=== PATIENT | female | born 1980 | race Caucasian/White ===

== ENCOUNTER 2025-01-25 04:11 | Emergency (ER) | payer SELFPAY ==
[2025-01-25] VITALS (10 sets, daily range): BP systolic 133–167; BP diastolic 61–83; PULSE 64–83; RESP 14–20; TEMP 36.8; O2SAT 97–100; BMI 35.4
--- NOTE | 2025-01-25 04:37 | ED.ABDPAIN ---
HPI - Abdominal Pain General Chief Complaint: Abdominal Pain Stated Complaint: N, V, had gall bladder removed 01/22 Time Seen by Provider: 01/25/25 04:33 Source: patient Mode of arrival: Wheelchair History of Present Illness HPI narrative: 44-year-old female with history of weight reduction gastric bypass surgery in [facility] October 2023, subsequent pain for which she was seen by bariatric surgeon Dr Slater in [facility], [facility], had consultation with [facility] general surgeon Dr. Baltazar, status post gallbladder removal 01/12/25 with incidental intraoperative internal hernia that was also repaired, follow up EGD in the next day 01/17/25 showed ulceration in gastric bypass area, continued on her omeprazole antacid with the addition of Carafate restart new medication day 2. Having increasing abdominal pain. No fevers or chills. No painful or frequent urination. Denies cough chest pain shortness of breath. Related Data Previous Rx's ?Medication ?Instructions ?Recorded hydrocodone 5 mg-acetaminophen 325 1 tab PO Q6H PRN pain #10 tabs 01/25/25 mg tablet Allergies Allergy/AdvReac Type Severity Reaction Status Date / Time NSAIDS (Non-Steroidal AdvReac Abdominal Verified 01/25/25 04:19 Anti-Inflamma Pain Patient History Smoking Status: Current every day smoker Exam Narrative Exam Narrative: GENERAL: Well-developed patient, in mild distress. HEAD: Atraumatic. Normocephalic. EYES: Pupils equal round and reactive. Extraocular motions intact. No scleral icterus. No injection or drainage. ENT: Nose without bleeding, purulent drainage. Throat without erythema, tonsillar hypertrophy or exudate. Airway patent. NECK: Trachea midline. Non tender CARDIOVASCULAR: Regular rate and rhythm without murmurs, gallops, or rubs. RESPIRATORY: Clear to auscultation. Breath sounds equal bilaterally. No wheezes, rales, or rhonchi. GASTROINTESTINAL: Obese, pannus with well-healed scars, some tenderness periumbilical without obvious ventral hernia, bowel tones unremarkable without rushes or tinkles. EXTREMITIES: No edema or joint tenderness. BACK: Nontender without deformity or crepitance. No flank tenderness. NEURO: AOx3. Motor functions grossly nonfocal. SKIN: No rash or erythema of visible areas Initial Vital Signs Initial Vital Signs: Vital Signs Pulse Rate 70 01/25/25 04:17 Blood Pressure 143/75 H 01/25/25 04:17 Pulse Oximetry 97 01/25/25 04:17 Oxygen Delivery Method Room Air 01/25/25 04:17 Course Orders Ordered: ED Orders 01/25/25 04:32 HCG Quantitative /Beta subunit Stat 01/25/25 04:33 Complete Blood Count AUTO DIFF Stat Comprehensive Metabolic Panel Stat Lipase Stat 01/25/25 04:53 CT abdomen pelvis w con Stat 01/25/25 04:54 Ictotest Urine Stat Urine Culture Stat Urine Microscopic Stat Discontinued Medications Hydrocodone Bitart/Acetaminophen (Hydrocodone/Acet 5/325 Prepack) 1 bottle MISC DIRECTED ONE Stop: 01/25/25 06:32 Last Admin: 01/25/25 06:38 Dose: 1 bottle Hydrocodone Bitart/Acetaminophen (Hydrocodone/Acet 5/325 Tablet) 1 tab PO NOW ONE Stop: 01/25/25 06:32 Last Admin: 01/25/25 06:38 Dose: 1 tab Hydromorphone HCl (Hydromorphone Hcl 0.5 Mg/0.5 Ml Syringe) 0.5 mg IV NOW ONE Stop: 01/25/25 04:47 Last Admin: 01/25/25 04:56 Dose: 0.5 mg Sodium Chloride (Normal Saline 0.9%) 1,000 mls @ 1,000 mls/hr IV BOLUS ONE Stop: 01/25/25 05:52 Last Infusion: 01/25/25 06:22 Dose: Infused Ondansetron HCl (Ondansetron 4 Mg/2 Ml Inj) 4 mg IV NOW ONE Stop: 01/25/25 04:47 Last Admin: 01/25/25 04:55 Dose: 4 mg Pantoprazole Sodium (Pantoprazole 40 Mg Vial) 40 mg IV NOW ONE Stop: 01/25/25 04:47 Last Admin: 01/25/25 04:55 Dose: 40 mg Vital Signs Vital signs: Vital Signs - 8 hr 01/25/25 04:17 01/25/25 04:17 01/25/25 04:18 Temperature 98.2 F Pulse Rate 70 83 Respiratory Rate 20 Blood Pressure 143/75 H 143/75 H Pulse Oximetry 97 97 Oxygen Delivery Method Room Air Room Air 01/25/25 04:30 01/25/25 04:30 01/25/25 05:00 Temperature Pulse Rate 64 70 Respiratory Rate Blood Pressure 135/74 Pulse Oximetry 100 100 Oxygen Delivery Method Room Air Room Air 01/25/25 05:01 01/25/25 05:01 01/25/25 05:21 Temperature Pulse Rate 74 Respiratory Rate 15 Blood Pressure 138/72 167/73 H Pulse Oximetry 99 Oxygen Delivery Method Room Air 01/25/25 05:21 01/25/25 05:30 01/25/25 05:30 Temperature Pulse Rate 68 71 Respiratory Rate 16 14 Blood Pressure 143/69 H Pulse Oximetry 100 100 Oxygen Delivery Method Room Air Room Air 01/25/25 06:00 01/25/25 06:00 Temperature Pulse Rate 71 Respiratory Rate 18 Blood Pressure 149/83 H Pulse Oximetry 100 Oxygen Delivery Method Room Air MDM - Abdominal Pain Lab Data Attestation: I reviewed the patient's lab results. Lab results narrative: White blood cell count 7300, hemoglobin 8.7, platelets 414,000. Glucose 99. Normal renal function, serum CO2, potassium. Sodium 136 slight low. Liver functions and lipase normal. HCG negative. Urinalysis slight blood but no inflammatory cells or markers, negative for bacteria, no urine culture triggered. 01/25/25 04:32 01/25/25 04:32 Labs: Lab Results 01/25/25 01/25/25 Range/Units 04:32 04:54 WBC 7.3 (4.5-11.0) X10^3/uL RBC 4.31 (4.0-5.2) X10^6/uL Hgb 8.7 L (12.0-16.0) g/dL Hct 28.0 L (36-46) % MCV 65.0 L (80-100) fL MCH 20.2 L (26-34) PG MCHC 31.1 (30-36) % RDW 21.2 H (11.6-14.8) % Plt Count 414 H (150-400) X10^3/uL Neut % (Auto) 72.2 (50-75) % Lymph % (Auto) 16.4 L (25-40) % Allen % (Auto) 7.0 (3-14) % Eos % (Auto) 4.0 (2-4) % Baso % (Auto) 0.4 (0-2) % Neut # (Auto) 5300 (1950-3689) /uL Lymph # (Auto) 1200 (6373-3348) /uL Allen # (Auto) 500 (0-900) /uL Eos # (Auto) 300 (0-450) /uL Baso # (Auto) 0 (0-100) /uL Platelet Estimate Increased on smear RBC Morphology See below Anisocytosis 2+ H Microcytosis 3+ H Sodium 136 L (137-145) mmol/L Potassium 3.4 (3.4-5.1) mmol/L Chloride 105 (98-107) mmol/L Carbon Dioxide 24 (22-32) mmol/L BUN 10 (7-17) mg/dL Creatinine 0.83 (0.52-1.04) mg/dL Estimated GFR > 60 (>60) mL/min BUN/Creatinine Ratio 12.0 (6-22) Glucose 99 (70-99) mg/dL Calcium 8.8 (8.4-10.2) mg/dL Total Bilirubin 0.2 (0.2-1.3) mg/dL AST 23 (14-36) IU/L ALT 16 (<35) IU/L Alkaline Phosphatase 101 (38-126) U/L Total Protein 6.6 (6.3-8.2) g/dL Albumin 3.4 L (3.5-5.0) g/dL Globulin 3.2 (1.7-4.1) g/dL Albumin/Globulin Ratio 1.1 (1.0-2.8) Lipase 40 (23-300) U/L HCG, Quant < 2.39 mIU/mL Ur Bilirubin Confirm Negative (Negative) Urine RBC 30-100/hpf H (0-5/HPF) Urine WBC 0-1/hpf (0-5/HPF) Ur Squamous Epith Cells None seen (0-5/HPF) Urine Bacteria None seen (None) Ur Culture Indicated? Cult not indicated Vol Urine Centrifuged 10ml (spun) Point of care testing: Urine Dip Bedside Urine Glucose Negative Bedside Urine Bilirubin + 1 Bedside Urine Ketone - Negative Urine Specific [place] 1.015 Bedside Urine Occult Blood +++ Bedside Urine pH 7.5 Bedside Urine Protein +/- 15 Bedside Urine Urobilinogen +/- 1mg Bedside Urine Nitrite - Negative Bedside Urine Leukocytes +/- 15 Esterase MDM Narrative Medical decision making narrative: 44-year-old female with history of October 2023 gastric bypass [facility], or recently followed by [facility] general surgeon, 2 days ago had gallbladder removal [facility] by surgeon Dr. Baltazar, incidental intraoperative internal hernia was also reduce, next day 01/23/2025 yesterday had EGD showing small ulcer gastric bypass site per patient report. Taking omeprazole, with the addition of Carafate restart yesterday. Increasing abdominal pain. Sirs screen negative. Some central abdominal tenderness without distention or obvious ventral hernia. Labs pending. Requests pain medications. IV Dilaudid/Zofran. IV Protonix. IV Zofran. DDx consider bowel obstruction, colitis, diverticulitis, strangulated/incarcerated hernia, UTI, other. Lab data: White blood cell count 7300, hemoglobin 8.7, platelets 414,000. Glucose 99. Normal renal function, serum CO2, potassium. Sodium 136 slight low. Liver functions and lipase normal. HCG negative. Urinalysis slight blood but no inflammatory cells or markers, negative for bacteria, no urine culture triggered. CT abdomen and pelvis. Impressions: ?Acute inflammatory process in the small bowel loops immediately distal to the site of the gastroenteric anastomosis in the left upper lorelei abdomen, including moderate wall thickening as well as associated mesenteric fat stranding. There is low volume pneumoperitoneum in the upper abdomen, presumably secondary to recent laparoscopic cholecystectomy. However, surgical dehiscence or perforation at the site of the inflammation not excluded. Recommend short-term follow up. Ideally with oral contrast. Residual fat stranding in the gallbladder fossa secondary to recent cholecystectomy. No free fluid or collections in this area. The examination is otherwise unremarkable.? See tele radiology report. Consider repeat CT scanning with oral contrast. We will reach out to surgery on-call [facility] where she had her recent gallbladder and hernia surgeries 2 days ago, and subsequent EGD yesterday. Keep NPO for now. IV Protonix dose given prior. 619, case discussed with general surgery cross cover Dr. Hobson at [facility], covering for her recent surgeon Dr. Baltazar, no fever, normal WBC, she was able to see and read the tele radiology report from [facility], was unable to pull the images to review herself however. She feels patient probably does not need repeat study with oral contrast. Discharge instructions for Dr. Cartwright on follow up EGD after cholecystectomy and hernia repair indicated request to have patient follow up with her bariatric surgeon in [facility] Dr. Slater. Avoid NSAIDs. We will discharge patient on hydrocodone/acetaminophen, with follow up with her bariatric surgeon requested, advised patient to call office of bariatric surgery Dr. Slater on Sunday tomorrow to arrange close follow up. Return precautions discussed. Discharge Plan Departure Patient Disposition: Home Clinical Impression: Abdominal pain, History of bariatric surgery, History of cholecystectomy, History of gastric ulcer Activity Restrictions/Additional Instructions: History of remote gastric bypass weight reduction surgery [facility]. Prior care from bariatric surgery in [facility] Dr. Slater. Now having abdominal pain. No fever on triage. Screening labs unremarkable including normal white blood cell count. Anemia noted, unclear how much this mother change from any recent baseline, no description of active external bleeding. CT abdomen and pelvis showed inflammatory changes, some pneumoperitoneum free air but consistent with recent laparoscopic gallbladder surgery and hernia repair. Less likely dehiscence of the wound edge. Case discussed with on-call surgery Dr. Hobson at [facility], who did not feel that you needed repeat CT imaging with oral contrast at this time, she suggested continuation of your end reverse all with recent addition of Carafate acid binding medication. She suggested you follow up with your bariatric surgeon in close follow up this next week, call the office of Dr. Slater Sunday to arrange close follow up. Avoid anti-inflammatory medications ibuprofen or Naprosyn or aspirin. Pain control medication hydrocodone/acetaminophen given in the emergency department oral dose, home pack provided for discharge, short term follow up prescription sent to your requested pharmacy. Return earlier to this/nearest emergency department for any change worsening symptoms or any concerns prior. Prescriptions: New hydrocodone-acetaminophen 5-325 mg tablet 1 tab PO Q6H PRN (Reason: pain) Qty: 10 0RF Stand Alone Forms: Patient Portal/API
[2025-01-25 04:47] LABS: Add Manual Diff / Slide Review NO; Hematocrit 28.0 % (36-46); Hemoglobin 8.7 g/dL (12.0-16.0); Lymphocytes Absolute Auto 1200 /uL (1100-4500); Mean Corpuscular HGB Conc 31.1 % (30-36); Mean Corpuscular Hemoglobin 20.2 PG (26-34); Mean Corpuscular Volume 65.0 fL (80-100); Platelet Count 414 X10^3/uL (150-400)
--- NOTE | 2025-01-25 04:53 | DI.CT.S_ITS ---
PROCEDURE: CT ABDOMEN PELVIS W CON INDICATIONS: abd pain, recent nhan and hernia repair TECHNIQUE: After the administration of intravenous contrast, axial sections acquired from the lung bases to the pubic symphysis. Coronal and sagittal reformats were performed. For radiation dose reduction, the following was used: automated exposure control, adjustment of mA and/or kV according to patient size. COMPARISON: None. FINDINGS: Image quality: Diagnostic. Lower Chest: No significant findings. ABDOMEN: Liver: No solid mass. Gallbladder: Cholecystectomy. Biliary ducts: No biliary dilation. Pancreas: No ductal dilation. Spleen: Size is within normal limits. Adrenal Glands: No adrenal nodules. Kidneys and Ureters: No hydronephrosis. No solid mass. No complex renal cystic lesion which requires follow up. Stomach and Bowel: Prior gastric surgery Peritoneum: Small a moderate free fluid in the pelvis. Trace free air consistent with recent surgery. Ileal bowel wall thickening and perienteric edema associated with the anastomotic different gastric limb. Several adjacent mesenteric lymph nodes measure up to 9 mm in short axis. Ventral Wall: No significant ventral hernia. Abdominal Nodes: No retroperitoneal or mesenteric adenopathy by size criteria. Vessels: Aorta and inferior vena cava are normal in size. PELVIS: Pelvic Organs: Calcified uterine fibroid Bladder: No bladder wall thickening, accounting for underdistention. Pelvic Nodes: No enlarged lymph nodes. Miscellaneous: No inguinal hernias are seen. Bones: No aggressive osseous abnormality. IMPRESSION: Small bowel enteritis in the left upper quadrant associated with mesenteric adenopathy and [id number] free fluid in the pelvis. No organized abscess. Trace pneumoperitoneum consistent with recent surgery. Note: This final report is concordant with the preliminary after-hours interpretation provided by [employer] Approved by: Cedric Domingo M.D. on 01/25/2025 at 8:41
[2025-01-25] MEDS: PANTOPRAZOLE 40 MG VIAL IV (04:55)
[2025-01-25] MEDS: ONDANSETRON 4 MG/2 ML INJ IV (04:55)
[2025-01-25] MEDS: SODIUM CHLORIDE 0.9% 1,000 ML 1000 ML IV (04:55)
[2025-01-25 05:00] LABS: Alanine Aminotransferase 16 IU/L (<35); Albumin 3.4 g/dL (3.5-5.0); Albumin Globulin Ratio 1.1 (1.0-2.8); Alkaline Phosphatase 101 U/L (38-126); Blood Urea Nitrogen 10 mg/dL (7-17); Calcium 8.8 mg/dL (8.4-10.2); Carbon Dioxide 24 mmol/L (22-32); Chloride 105 mmol/L (98-107); Estimated Glomerular Filt Rate > 60 mL/min (>60); Globulin 3.2 g/dL (1.7-4.1); Glucose 99 mg/dL (70-99); HEMOLYSIS < 15 (0-50); Lipase 40 U/L (23-300); Potassium 3.4 mmol/L (3.4-5.1); Sodium 136 mmol/L (137-145); Total Protein 6.6 g/dL (6.3-8.2)
--- NOTE | 2025-01-25 05:05 | PC.NURSE ---
Pt to imaging via ED stretcher with technology resource teacher
[2025-01-25 05:18] LABS: Anisocytosis 2+; Microcytosis 3+
[2025-01-25 05:30] LABS: Ictotest Urine Negative (Negative)
[2025-01-25 05:31] LABS: Culture Indicated Urine Cult Not Indicated
[2025-01-25 05:44] LABS: HCG Quantitative /Beta subunit < 2.39 mIU/mL
== END 2025-01-25 06:48 | disposition home or self-care (01) ==
PROVIDERS: Emergency Provider Emergency Medicine
DX: R10.9 Unspecified abdominal pain (principal); Z98.84 Bariatric surgery status; Z87.11 Personal history of peptic ulcer disease; Z90.49 Acquired absence of other specified parts of digestive tract
CPT/HCPCS: 36415; 74177; 80053; 81003; 81015; 83690; 84702; 85025; 87086; 96361; 96374; 96375; 99284; J1171; J2405; J2470; J7030; Q9967